=== PATIENT | female | born 1965 | race Caucasian/White ===

== ENCOUNTER → 2017-11-13 | Outpatient (CLI) | payer BC ==
--- NOTE | 2017-11-15 16:05 | MAM ---
EXAM DESCRIPTION: 3D Screening BILATERAL : Digital Mammography. CLINICAL HISTORY: 52 years Female SCREENING . No complaints. No family history of breast cancer. Premenopausal. No HRT. COMPARISON: 2-D digital screening bilateral study 08/23/2015. No prior reports available. TECHNIQUE: Bilateral CC and MLO projection full-field images, 3-D tomosynthesis digital mammographic technique. Also bilateral synthesized CC/ MLO full-field images. CAD not utilized. FINDINGS: The breast parenchymal density pattern is: Heterogeneously dense breast tissue, which may obscure small masses. No skin thickening or nipple retraction bilateral solitary microcalcifications. No focal, stellate mass or density, focal asymmetry , and no suspicious microcalcifications bilaterally. Stable mammograms compared to prior study, taking into account differences in mammographic technique IMPRESSION: BI-RADS CATEGORY: 2 - BENIGN FINDINGS. FOLLOW UP: Routine digital bilateral screening, one year interval from November 2017. Written communication explaining the IMPRESSION and follow-up, will be mailed to the patient and referring health care provider. According to the [employer], yearly mammograms are recommended starting at age 40 and continuing as long as a woman is in good health. Any breast change noted on a breast self-exam should be reported promptly to the patient's healthcare provider. Breast MRI is recommended for women with an approximately 20-25% or greater lifetime risk of breast cancer, including women with a strong family history of breast or ovarian cancer and women who have been treated for Hodgkin's disease. A negative mammographic report should not delay tissue diagnosis in patients with significant clinical history or physical findings. Extremely dense breast tissue limits the sensitivity of digital mammography. Electronically signed by: Collin Martines MD 11/15/2017 4:04 PM CDT
== END ==
LOC: MAMMO 13:30
PROVIDERS: ATTEND General Practice
DX: Z12.31 Encounter for screening mammogram for malignant neoplasm of breast (principal)

== ENCOUNTER → 2019-01-28 | Outpatient (CLI) | payer BC ==
--- NOTE | 2019-01-29 16:47 | MAM ---
EXAM DESCRIPTION: 3D Screening BILATERAL : Digital Mammography. CLINICAL HISTORY: 53 years Female ANNUAL SCREENING . No complaints. No personal or family history of breast cancer. Childbirth. Premenopausal. No HRT. Lifetime risk of developing breast cancer (Tyrer-Cuzick model)(%): Not calculated COMPARISON: Bilateral screening digital breast tomosynthesis 11/13/2017.. TECHNIQUE: Bilateral CC and MLO projection full-field images, digital tomosynthesis mammographic technique. Bilateral digital 2-D full-field MLO images. CAD not available for tomosynthesis or 2-D images. FINDINGS: The breast parenchymal density pattern is: Heterogeneously dense breast tissue, which may obscure small masses. No skin thickening or nipple retraction. Bilateral scattered microcalcifications are numerous. Also bilateral skin calcifications. Bilateral axillary lymph nodes. No new focal, stellate mass or density, focal asymmetry , and no suspicious microcalcifications bilaterally. Stable mammograms compared to prior study. IMPRESSION: Benign exam. BIRAD CATEGORY: 2 BENIGN FINDINGS. RECOMMENDATIONS: FOLLOW UP: Routine digital bilateral mammographic screening, one year interval from January 2019. Written communication explaining the IMPRESSION and follow-up, will be mailed to the patient and referring health care provider. According to the [employer], yearly mammograms are recommended starting at age 40 and continuing as long as a woman is in good health. Any breast change noted on a breast self-exam should be reported promptly to the patient's healthcare provider. Breast MRI is recommended for women with an approximately 20-25% or greater lifetime risk of breast cancer, including women with a strong family history of breast or ovarian cancer and women who have been treated for Hodgkin's disease. A negative mammographic report should not delay tissue diagnosis in patients with significant clinical history or physical findings. Extremely dense breast tissue limits the sensitivity of digital mammography. Electronically signed by: Collin Martines MD 01/29/2019 4:46 PM CDT
== END ==
LOC: MAMMO 14:31
PROVIDERS: ATTEND General Practice
DX: Z12.31 Encounter for screening mammogram for malignant neoplasm of breast (principal)

== ENCOUNTER → 2019-02-04 | Outpatient (CLI) | payer BC ==
--- NOTE | 2019-02-05 14:52 | RAD ---
EXAM DESCRIPTION: Foot,Right 3 Views CLINICAL HISTORY: 53 years, Female, [employer]. Pain. COMPARISON: None TECHNIQUE: AP, lateral, and oblique views of the right foot FINDINGS: Images of the right foot demonstrate no displaced fracture or dislocation. Mild hallux valgus configuration. There is small bunionette/cortical protuberance measuring approximately 5 mm at the lateral facet metatarsal head. Additional fifth metatarsal head sesamoid. Small plantar and dorsal calcaneal spur. IMPRESSION: No acute osseous abnormality. Electronically signed by: Yash Parnell DO 02/05/2019 2:42 PM CDT
== END ==
LOC: RAD 16:37
PROVIDERS: ATTEND Podiatrist Foot & Ankle Surgery
DX: M21.621 Bunionette of right foot (principal)